=== PATIENT | male | born 1990 | race African-American/Black ===

== ENCOUNTER 2020-04-27 20:07 | Emergency (ER) | payer OTHER ==
[~2020-04-27] VITALS: Ht 180.3 cm; Wt 82.0 kg
[2020-04-27] MEDS ORDERED: ONDANSETRON HCL 4MG/2ML INJ IV STA (20:18)
[2020-04-27] MEDS ORDERED: SODIUM CHLORIDE 0.9% 1,000 ML IV ONE (20:18)
[2020-04-27] MEDS ORDERED: MORPHINE SULFATE 4 MG/ML CPJ (NOT FOR IM USE) IV STA (20:18)
[2020-04-27] MEDS ORDERED: CEFAZOLIN 1000MG PREMIX 50 ML IV ONE (20:30)
[2020-04-27] MEDS ORDERED: TETANUS, DIPHTHERIA, PERTUSSIS VAC/PF 0.5ML (>7YR OLD) IM ONE (20:30)
[2020-04-27 20:54] LABS: CHLORIDE 104 mEq/L (98-107); PROTHROMBIN TIME 10.4 sec (9.6-11.0)
[2020-04-27 20:58] LABS: BASOPHILS % 1.3 % (0.0-2.0); EOSINOPHILS % 0.4 % (0.0-5.0); HEMATOCRIT. 46.3 % (42.0-52.0); HEMOGLOBIN. 15.7 g/dL (14.0-18.0); LYMPHOCYTES % 32.1 % (20.0-50.0); MEAN CORPUSCULAR HEMOGLOBIN 31.8 pg (28.0-32.0); MEAN PLATELET VOLUME 10.5 fl (7.4-10.4); MONOCYTES % 5.1 % (2.0-8.0); NEUTROPHILS % 61.1 % (40.0-76.0); PLATELET 197 x1000/uL (130-400); RED BLOOD CELL COUNT 4.92 mill/uL (4.7-6.1); RED CELL DISTRIBUTION WIDTH 13.6 % (11.6-14.6)
[2020-04-27] MEDS ORDERED: HYDROCODONE/ACETAMINOPHEN 5/325MG TABLET PO ONE (21:15)
[2020-04-27] MEDS ORDERED: BACITRACIN ZINC OINT UDPKT TOP ONE (21:30)
[2020-04-27 21:53] VITALS: BP 117/63
== END 2020-04-27 22:14 | disposition home or self-care (01) ==
LOC: ER 20:07
DX: S41.031A Puncture wound without foreign body of right shoulder, initial encounter (principal); W22.8XXA Striking against or struck by other objects, initial encounter; Y93.89 Activity, other specified; Y92.89 Other specified places as the place of occurrence of the external cause; Y99.8 Other external cause status; F17.290 Nicotine dependence, other tobacco product, uncomplicated
CPT/HCPCS: 36415; 71045; 73030; 80053; 85025; 85610; 86850; 86900; 86901; 90471; 90715; 96365; 96375; 99284; J0690; J2270; J2405; J7030

== ENCOUNTER 2021-05-29 19:49 | Emergency (ER) | payer OTHER ==
[~2021-05-29] VITALS: Ht 180.3 cm; Wt 80.0 kg
[2021-05-29] MEDS ORDERED: FENTANYL CITRATE/PF 50MCG/ML 2ML VIAL IV ONE (21:30)
[2021-05-29] MEDS: OXYCODONE HCL/ACETAMINOPHEN 5/325MG TABLET PO ONE ×2 (22:53→22:55)
[2021-05-29] MEDS ORDERED: MORPHINE SULFATE 2MG/ML ORAL SYR PO ONE (23:45)
[2021-05-29] MEDS ORDERED: KETOROLAC 15MG/ML VIAL IV ONE (23:45)
[2021-05-29] MEDS ORDERED: MORP15TA54 MT (23:53)
[2021-05-29] MEDS ORDERED: IBUP-2029 MT (23:53)
[2021-05-30] MEDS ORDERED: MORPHINE SULFATE 15MG TABLET SR PO ONE
[2021-05-30 00:22] VITALS: BP 115/64
== END 2021-05-30 00:24 | disposition home or self-care (01) ==
LOC: ER 19:49
DX: S82.491A Other fracture of shaft of right fibula, initial encounter for closed fracture (principal); X50.1XXA Overexertion from prolonged static or awkward postures, initial encounter; Y93.89 Activity, other specified; Y92.9 Unspecified place or not applicable; Z88.6 Allergy status to analgesic agent
CPT/HCPCS: 29515; 73610; 96374; 96375; 99284; J3010; Z7610